=== PATIENT | female | born 1960 | race Caucasian/White ===

== ENCOUNTER 2017-09-07 00:06 | Emergency (ER) | payer BC ==
[2017-09-07] MEDS ORDERED: ONDANSETRON HCL/PF 2 MG/ML VIAL IV ONE (00:24)
[2017-09-07] MEDS ORDERED: KETOROLAC TROMETHAMINE 30 MG/ML VIAL IV ONE (00:26)
[2017-09-07] MEDS ORDERED: ONDANSETRON HCL/PF 2 MG/ML VIAL ONE (00:28)
[2017-09-07] MEDS ORDERED: KETOROLAC TROMETHAMINE 30 MG/ML VIAL ONE (00:28)
--- NOTE | 2017-09-07 00:31 | ERNOTE ---
ER Female HPI Stated Complaint: uti kidney stone Presenting Symptoms: other - Flank and RLQ pain Time Seen by Provider: 09/07/17 00:20 Source: patient Exam Limitations: no limitations Immunizations: IMMUNIZATION HX Immunizations Up to Date Yes History of Influenza Vaccine Yes Hx Pneumococcal Vaccination No Allergies/Adverse Reactions: Allergies Sulfa (Sulfonamide Antibiotics) Allergy (Intermediate, Verified 09/07/17 00:13) Hives Home Medications: HOME MEDICATIONS HYDROcodone/ACETAMINOPHEN [Lorcet 5-325 mg Tablet] 1 each PO QID PRN #10 tablet 09/07/17 [Last Taken Unknown] - History of Present Illness Narrative: Pt states she has had some back pain for 2-3 days and has "not been feeling well ". She went to be around 21:00 and had increase in pain in the right flank around 21:15 Timing: Present: getting worse Quality: Present: severe Onset Location: Present: RLQ, right flank Activities at Onset: Present: rest Prior Abdominal Problems: Present: similar symptoms - 12 years ago Review of Systems - Review of Systems Constitutional: Present: chills. Absent: recent illness, fever EYE: Present: no symptoms reported ENT: Present: no symptoms reported Respiratory: Absent: shortness of breath Cardiology: Absent: chest pain Gastrointestinal/Abdominal: Present: nausea. Absent: vomiting, constipation Genitourinary: Present: See HPI, frequency, decreased urinary output Musculoskeletal: Present: back pain Skin: Present: no symptoms reported Neurological: Present: no symptoms reported Endocrine: Present: no symptoms reported Hematologic/Lymphatic: Present: no symptoms reported Psych: Present: no symptoms reported - Patient's Past Medical History Patient History - Medical: Kidney stone Patient History - Cardiac/Respiratory: No pertinent hx Patient History - Cancer: No Hx of Cancer Patient History - Surgical Procedures: Gastric Bypass Patient History - Other: None LMP (females 10-50): Menopausal - Social History Living Situations: home Abuse History: No History of abuse Psych History: No pertinent hx Smoking Status: Never smoker Have you smoked in the past 12 months: No Do you dip or chew tobacco: No Alcohol Use: none Drug Use: none - Immunizations Immunizations Up to Date: Yes Hx Pneumococcal Vaccination: No History of Influenza Vaccine: Yes Physical Exam - Physical Exam General Appearance: Present: wd/wn, alert, moderate distress Head Exam: Present: normal inspection, no evidence of injury Eye Exam: Normal inspection: bilateral Neck: Present: normal inspection, supple Respiratory: Present: no respiratory distress, normal breath sounds, lungs clear Cardiovascular/Chest: Present: regular rate, rhythm, no murmur, normal peripheral pulses Gastrointestinal/Abdominal: Present: normal bowel sounds, tenderness Back Exam: Present: normal range of motion, no vertebral tenderness, CVA tenderness (R) - suprapubic Extremity Exam: Present: normal inspection, normal range of motion, no edema Neurological Exam: Present: alert, oriented, no motor/sensory deficits Skin Exam: Present: normal color, warm/dry Lymphatic Exam: Present: no adenopathy ED Progress - Results and Orders Patient's Lab Results:: I have reviewed the patient's lab results. Results and Orders: Laboratory Tests 09/07/17 09/07/17 09/07/17 00:35 00:40 00:40 WBC 7.3 Hgb 11.4 L Hct 32.9 L Plt Count 246 Sodium 142 Potassium 3.4 Chloride 104 Carbon Dioxide 28.0 BUN 25 H Creatinine 0.96 Random Glucose 121 H Calcium 9.0 Total Bilirubin 0.3 AST 20 ALT 29 Alkaline Phosphatase 59 Total Protein 7.4 Albumin 3.7 Urine Color Yellow Urine Appearance Clear Urine pH 6.5 Ur Specific [place] 1.020 Urine Protein Negative Urine Glucose (UA) Negative Urine Ketones Negative Urine Blood 250 H Urine Nitrate Negative Urine Bilirubin Negative Urine Urobilinogen Normal Ur Leukocyte Esterase Negative Urine RBC 5-10 H Urine WBC None seen Ur Epithelial Cells 0-5 Urine Bacteria Trace Urine Culture Comments No culture indicated - Vital Signs Patient's Vital Signs:: I have reviewed the patient's vital signs. Vital Signs: Vital Signs 09/07/17 09/07/17 00:13 00:17 Temperature 36.7 C Pulse Rate 76 Respiratory 15 Rate Blood Pressure 167/129 O2 Sat by Pulse 100 Oximetry - CT/Ultrasound CT/Ultrasound Narrative: Moderate right hydronephrosis. 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 Drink 2 quarts of water/ fluids per day. See your primary care provider if not improving in 3-5 days Referrals: Silke Nuñez, ALLY [Primary Care Provider] - Prescriptions: HYDROcodone/ACETAMINOPHEN [Lorcet 5-325 mg Tablet] 1 each PO QID PRN #10 tablet PRN Reason: Pain
[2017-09-07 00:48] LABS: Hematocrit 32.9 % (37.0-47.0); Hemoglobin 11.4 gm/dL (12.5-16.0); Mean Cell Volume 91.4 fl (78-100); Mean Corpuscular Hemoglobin 31.7 pg (27-31); Mean Corpuscular Hgb Conc 34.7 g/dl (32-36); Mean Platelet Volume 9.8 fl (6.0-9.5); Neutrophil # 3.8 K/mm3 (1.3-6.0); Neutrophil % 52.7 % (42-75.0); Platelet Count 246 K/mm3 (150-450); White Blood Count 7.3 K/mm3 (4.0-10.5)
[2017-09-07 00:48] LABS: Urine Bilirubin Negative (NEGATIVE); Urine Blood 250 /ul (NEGATIVE); Urine Ketone Negative (NEGATIVE); Urine Nitrite Negative (NEGATIVE); Urine Protein Negative (NEGATIVE); Urine Urobilinogen Normal (NORMAL); Urine pH 6.5 pH (5.0-7.0)
[2017-09-07 00:55] LABS: Urine Appearance Clear; Urine Bacteria TRACE; Urine Color Yellow; Urine WBC None Seen /hpf (0-5)
[2017-09-07 01:01] LABS: Albumin * 3.7 gm/dl (3.4-5.0); Anion Gap 13.4 mmol/L (6.8-13.8); Bilirubin, Total 0.3 mg/dL (0.0-1.1); Ca. Corrected For Albumin 8.9 mg/dL (8.4-10.2); Potassium 3.4 mmol/L (3.4-4.6); Total Protein 7.4 gm/dL (6.2-8.2)
[2017-09-07] MEDS ORDERED: HYDROcodone/ACETAMINOPHEN 1 EACH TABLET PO ONE (02:39)
[2017-09-07] MEDS ORDERED: HYDROcodone/ACETAMINOPHEN 1 EACH TABLET ONE (02:45)
[2017-09-07 02:55] VITALS: BP 113/62
== END 2017-09-07 02:53 | disposition home or self-care (01) ==
LOC: ER 00:06
DX: N20.0 Calculus of kidney (principal); Z87.442 Personal history of urinary calculi
CPT/HCPCS: 36415; 74176; 80053; 81001; 85025; 96374; 96375; 99284; J2405